=== PATIENT | male | born 2000 | race African-American/Black ===

== ENCOUNTER 2020-03-13 18:17 | Emergency (ER) | payer OTHER, SELFPAY ==
--- NOTE | 2020-03-13 18:23 | ED.GENADULT ---
HPI - General Adult General Chief complaint: Abdominal Pain Stated complaint: Side Pain Time Seen by Provider: 03/13/20 18:23 Source: patient Mode of arrival: ambulatory Limitations: no limitations History of Present Illness HPI narrative: 19-year-old male patient presents to the [facility] with complaints of left abdominal pain for the past week and a half. Patient states that he has also had associated watery diarrhea with this pain that is lasted also for about a week and states he does about 2 or 3 times a day and is very foul-smelling. Patient denies any fevers, body aches or chills. Denies any nausea or vomiting. Patient states that the abdominal pain is starting to get worse and is starting to radiate to the back and rates his pain at this time 6 out of 10. Denies taking anything for the symptoms. Patient denies any pain with urination, urgency or frequency. Denies any penile discharge. Related Data Allergies Allergy/AdvReac Type Severity Reaction Status Date / Time Bumble Bee Allergy Mild Uncoded 10/12/18 23:08 Review of Systems Review of Systems: Narrative: CONSTITUTIONAL: Denies fever, chills, or sweats. EYES: Denies visual changes, redness, or discharge. ENT: Denies rhinorrhea, congestion, sore throat, or otalgia. CARDIOVASCULAR: Denies chest pain, palpitations, or edema. RESPIRATORY: Denies cough or dyspnea. GASTROINTESTINAL: Positive left-sided abdominal pain x1.5 weeks, denies nausea, vomiting, positive diarrhea x1 week. GENITOURINARY: Denies dysuria or hematuria. SKIN: Denies rash or itching. MUSCULOSKELETAL: Denies back pain, joint pain, or myalgia. NEUROLOGIC: Denies headache, numbness, or weakness. PSYCHIATRIC: Denies anxiety or depression. [facility] Past Medical History Medical History (Updated 03/13/20 @ 18:53 by JAGJIT Pedersen) Musculoskeletal disorder Tendon surgery bilateral feet as an Social History Social History (Updated 03/13/20 @ 18:24 by JAGJIT Pedersen) Smoking status: Current every day smoker Tobacco type: e-cigarettes/vaping Alcohol intake: never Comments At the time of my signature I agree with nursing past medical history, surgical, social, and family history. There is no relevant family history pertinent to the presenting complaint. Exam Narrative: Exam Narrative: GENERAL: Well-appearing, well-nourished, and in no acute distress. HEAD: Normocephalic, atraumatic. EYES: PERRLA and EOMI. ENT: Nares clear, no rhinorrhea or epistaxis. Mucous membranes moist. NECK: Supple. No lymphadenopathy CHEST: Clear to auscultation. No respiratory distress. HEART: Regular rate and rhythm. No murmur heard. Normal peripheral pulses. ABDOMEN: Soft, flat, nondistended. No guarding, rebound tenderness, or rigid. No pulsatilla masses. Hyperactive bowel sounds present in right upper and left upper quadrants. Patient does have tenderness noted to the left upper quadrant on palpation. No organomegaly. Negative Chase?s sign. No periumbicial tenderness. No Supra public tenderness or distension. Good femoral pulses bilaterally. No hernia noted. No scars or surface trauma. EXTREMITIES: Normal range of motion. No edema. SKIN: Warm, dry, no rash. NEURO: No focal deficits. Alert and oriented x3. Course Vital Signs Vital signs: Vital Signs Temperature 36.8 C 03/13/20 18:29 Pulse Rate 67 03/13/20 18:29 Respiratory Rate 16 03/13/20 18:29 Blood Pressure 148/72 H 03/13/20 18:29 Pulse Oximetry 98 03/13/20 18:29 Temperature 36.8 C 03/13/20 18:29 Pulse Rate 67 03/13/20 18:29 Respiratory Rate 16 03/13/20 18:29 Blood Pressure 148/72 H 03/13/20 18:29 Pulse Oximetry 98 03/13/20 18:29 Vital signs reviewed The patient has been informed that they may have pre-hypertension or Hypertension based on a BP reading in the department. I recommend that the patient call the primary care provider listed on their discharge instructions or a physician of their choice this
[2020-03-13 18:29] VITALS: BP 148/72; PULSE 67; RESP 16; TEMP 36.8; O2SAT 98
--- NOTE | 2020-03-13 19:05 | PC.NURSE ---
at 1854 report was given to susy ma rn.
== END 2020-03-13 18:52 | disposition short-term general hospital (02) ==
PROVIDERS: Emergency Provider Nurse Practitioner Family
DX: R10.12 Left upper quadrant pain (principal); F17.200 Nicotine dependence, unspecified, uncomplicated
CPT/HCPCS: 81003; 99212; G0463

== ENCOUNTER 2020-03-13 19:18 | Emergency (ER) | payer OTHER, SELFPAY ==
[2020-03-13 19:42] VITALS: BP 133/70; PULSE 77; RESP 20; TEMP 36.9; O2SAT 97
[2020-03-13 20:17] LABS: Basophils Percent Auto 0.4 % (0.2-1.2); Eosinophils Absolute Auto 0.1 K/mm3 (0-0.3); Hematocrit 42.2 % (42.0-52.0); Hemoglobin 14.1 g/dL (14.0-18.0); Immature Granulocyte Absolute 0.02 K/mm3 (0.00-0.031); Immature Granulocyte Percent A 0.2 % (0-0.5); Lymphocytes Absolute Auto 1.96 K/mm3 (0.9-3.2); Lymphocytes Percent Auto 21.3 % (18.3-44.2); Mean Corpuscular HGB Conc 33.4 g/dl (32-36); Mean Corpuscular Hemoglobin 30.2 pg (26-34); Mean Corpuscular Volume 90.4 fl (80-100); Monocytes Absolute Auto 0.6 K/mm3 (0.1-0.6); Monocytes Percent Auto 6.1 % (2.6-8.5); Neutrophils Absolute Auto 6.5 K/mm3 (1.3-6.7); Platelet Count Result 177 k/mm3 (150-375); Red Blood Count 4.67 M/mm3 (4.6-6.20); Red Cell Distribution Width 11.9 % (11.5-14.5); White Blood Count 9.2 K/mm3 (4.5-10.0)
--- NOTE | 2020-03-13 20:29 | PC.NURSE ---
AT 2019 THIS RN INFORMED PT OF NEED FOR STOOL AND URINE SAMPLE. PT STATES HE CANNOT GO AT THIS TIME BECAUSE HE HAS NOT EATEN ANYTHING TODAY. PT GIVEN A HAT FOR THE TOILET AND A URINAL. PT AWARE OF NEED FOR SPECIMENS.
[2020-03-13 20:34] LABS: Alanine Aminotransferase 17 U/L (4-50); Albumin Level 4.7 g/dL (3.5-5.1); Alkaline Phosphatase 61 U/L (38-126); Anion Gap 12 mmol/L (8-16); Aspartate Amino Transferase 26 U/L (17-59); Bilirubin,Total 0.5 mg/dL (0.2-1.3); Blood Urea Nitrogen 15 mg/dL (9-20); Calcium 9.6 mg/dL (8.4-10.2); Carbon Dioxide 27 mmol/L (22-30); Chloride 102 mmol/L (98-107); Estimated CRCL calculation 117 ml/min; Estimated Glomerular Filt Rate > 60; Glucose 97 mg/dL (75-110); Lipase 21 U/L (23-300); Potassium 3.7 mmol/L (3.4-5.0); Sodium 141 mmol/L (137-145)
[2020-03-13 21:00] VITALS: BP 136/65; PULSE 81; RESP 24; O2SAT 99
--- NOTE | 2020-03-13 21:13 | ED.ABDPAIN ---
HPI - Abdominal Pain General Chief Complaint: Abdominal Pain Stated Complaint: abd pain, diarrhea Time Seen by Provider: 03/13/20 20:52 History of Present Illness HPI narrative: LUQ pain and diarrhea for the past week. The pain is intermittent. Some relief following bowel movements. Stool is watery. He has not tried anyhting for his symptoms. No fever, chills, nausea, vomiting, dysuria. Related Data Allergies Allergy/AdvReac Type Severity Reaction Status Date / Time Bumble Bee Allergy Mild Uncoded 10/12/18 23:08 Review of Systems Review of Systems: All systems reviewed & are unremarkable except as noted in HPI and below Constitutional: Constitutional: Denies fever(s) Cardiovascular: Cardiovascular: Denies chest pain Respiratory: Respiratory: Denies dyspnea Gastrointestinal: Gastrointestinal: Reports abdominal pain, Reports diarrhea, Denies nausea and Denies vomiting Genitourinary: Genitourinary: Denies dysuria Musculoskeletal: Musculoskeletal: Denies back pain Neurologic: Denies numbness and Denies weakness [facility] Past Medical History Medical History Musculoskeletal disorder Tendon surgery bilateral feet as an Social History Social History Smoking status: Current every day smoker Tobacco type: e-cigarettes/vaping Alcohol intake: never Exam Const: General: healthy appearing, no acute distress and alert Orientation/consciousness: patient oriented x3 HENMT: Head: normal to inspection Neck: Neck: normal visual inspection and no lymphadenopathy Chest: Chest palpation & inspection: no tenderness Resp: Effort & Inspection: normal respiratory effort Auscultation: clear to auscultation bilaterally, no rales, no rhonchi and no wheezes Cardio: Jugular venous distension: no JVD Rate: regular rate Rhythm: regular rhythm Heart sounds: no murmurs GI: Inspection: non-distended GI Palp: Yes Soft to palpation, Yes Tenderness to palpation present (GI) (left side of abdomen), No Guarding due to palpation present (GI) and No Rebound tenderness present Skin: General skin exam: normal color Neuro: General: patient oriented x3 and moves all extremities Speech: normal speech Extrem: General: no edema Psych: Appearance: well kempt Affect: normal affect Course Vital Signs Vital signs: Vital Signs Temperature 36.9 C 03/13/20 19:42 Pulse Rate 77 03/13/20 19:42 Respiratory Rate 20 03/13/20 19:42 Blood Pressure 133/70 03/13/20 19:42 Pulse Oximetry 97 03/13/20 19:42 Temperature 36.9 C 03/13/20 19:42 Pulse Rate 82 03/13/20 22:00 Respiratory Rate 19 03/13/20 22:00 Blood Pressure 113/52 L 03/13/20 22:00 Pulse Oximetry 98 03/13/20 22:00 MDM - Abdominal Pain MDM Narrative Medical decision making narrative: Labs and exam benign. Refused bentyl and asked to be discharged. Medical Records Attestation: I reviewed the patient's medical records. Lab Data Attestation: I reviewed the patient's lab results. Result diagrams: 03/13/20 20:09 03/13/20 20:09 Labs: Lab Results 03/13/20 03/13/20 Range/Units 20:09 20:09 WBC 9.2 (4.5-10.0) K/mm3 RBC 4.67 (4.6-6.20) M/mm3 Hgb 14.1 (14.0-18.0) g/dL Hct 42.2 (42.0-52.0) % MCV 90.4 (80-100) fl MCH 30.2 (26-34) pg MCHC 33.4 (32-36) g/dl RDW 11.9 (11.5-14.5) % Plt Count 177 (150-375) k/mm3 MPV 11.0 H (7.4-10.4) fl Immature Gran % (Auto) 0.2 (0-0.5) % Neut % (Auto) 71.0 (45.5-73.1) % Lymph % (Auto) 21.3 (18.3-44.2) % [place] % (Auto) 6.1 (2.6-8.5) % Eos % (Auto) 1.0 (0-4.4) % Baso % (Auto) 0.4 (0.2-1.2) % Lymph # (Auto) 1.96 (0.9-3.2) K/mm3 [place] # (Auto) 0.6 (0.1-0.6) K/mm3 Eos # (Auto) 0.1 (0-0.3) K/mm3 Baso # (Auto) 0.0 (0.0-0.1) K/mm3 Abs Immat Gran (auto) 0.02 (0.00-0.031) K/mm3 Absolute Neuts (a
[2020-03-13 22:00] VITALS: BP 113/52; PULSE 82; RESP 19; O2SAT 98
== END 2020-03-13 22:35 | disposition home or self-care (01) ==
PROVIDERS: Physician Assistant; Emergency Provider Emergency Medicine
DX: R10.12 Left upper quadrant pain (principal); F17.290 Nicotine dependence, other tobacco product, uncomplicated
CPT/HCPCS: 36415; 80053; 81003; 83690; 85025; 99283; A9270

== ENCOUNTER 2020-09-16 11:27 | Emergency (ER) | payer OTHER, SELFPAY ==
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
[2020-09-16 11:30] VITALS: BP 126/64; PULSE 55; RESP 20; TEMP 36.5; O2SAT 100
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
[2020-09-16] MEDS: IBUPROFEN 600 MG TABLET PO (13:53)
[2020-09-16 14:45] VITALS: BP 112/64; PULSE 67; RESP 18; O2SAT 100
== END 2020-09-16 14:30 | disposition home or self-care (01) ==
PROVIDERS: Emergency Provider Emergency Medicine
DX: S16.1XXA Strain of muscle, fascia and tendon at neck level, initial encounter (principal); F17.290 Nicotine dependence, other tobacco product, uncomplicated; M47.816 Spondylosis without myelopathy or radiculopathy, lumbar region; M47.814 Spondylosis without myelopathy or radiculopathy, thoracic region; M48.061 Spinal stenosis, lumbar region without neurogenic claudication; V49.40XA Driver injured in collision with unspecified motor vehicles in traffic accident, initial encounter
CPT/HCPCS: 72125; 72128; 72131; 99284; A9270

== ENCOUNTER 2021-10-11 11:01 | Emergency (ER) | payer SELFPAY ==
--- NOTE | ~2021-10-11 | XR_ITS ---
EXAMINATION: XR elbow LT min 3V DATE: 10/11/2021 11:29 INDICATION: Left elbow pain. TECHNIQUE: 4 views of left elbow were obtained. COMPARISON: None. FINDINGS: Bone alignment is normal. No fracture. Joint spaces are well maintained. There is no elbow joint effusion. IMPRESSION: 1. Normal left elbow. Reviewed, dictated and finalized at location A. IMPRESSION: 1. Normal left elbow.
[2021-10-11 11:09] VITALS: BP 142/60; PULSE 83; RESP 16; TEMP 37.2; O2SAT 100
--- NOTE | 2021-10-11 11:16 | ED.EXTPRO ---
HPI - Extremity Problem General Chief complaint: Extremity Problem,Nontraumatic Stated complaint: left arm pain Time Seen by Provider: 10/11/21 11:17 Source: patient and RN notes reviewed Mode of arrival: ambulatory Limitations: no limitations History of Present Illness HPI Narrative: 21-year-old male presents to the [facility] with complaints of left posterior elbow pain for a couple of days, 2-3. Patient states that he was laying in bed when he noticed he had a sharp pain posterior elbow and that is fingers 345 for change in color without pain. Full range of motion. 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 Positive radial and ulnar pulse noted Onset (ago): day(s) (2-3) Related Data Allergies Allergy/AdvReac Type Severity Reaction Status Date / Time Bumble Bee Allergy Mild Uncoded 10/12/18 23:08 Review of Systems Review of Systems: All systems reviewed & are unremarkable except as noted in HPI and below Constitutional: Constitutional: Reports no additional constitutional complaints, Denies chills and Denies fever(s) Eyes: Eyes: Reports no additional eye complaints ENT: Reports system reviewed and no additional complaints, except as documented Cardiovascular: Cardiovascular: Reports no additional cardiovascular complaints Respiratory: Respiratory: Reports no additional respiratory complaints Gastrointestinal: Gastrointestinal: Reports no additional gastrointestinal complaints Musculoskeletal: Musculoskeletal: Reports as per HPI and Reports arthralgias (Left elbow) Integumentary/Breasts: Skin/Breast: Reports system reviewed and no additional complaints, except as docu Neurologic: Reports system reviewed and no additional complaints, except as documented Psychiatric: Psychiatric: Reports no additional psychiatric complaints Allergic/Immunologic: Allergic/Immunologic: Reports no additional allergic/immunologic complaints [facility] Past Medical History Medical History Musculoskeletal disorder Tendon surgery bilateral feet as an Surgical History Surgical History (Updated 10/11/21 @ 19:25 by Mady Layne APRN) No pertinent past surgical history Social History Social History Smoking status: Current every day smoker Tobacco type: e-cigarettes/vaping Alcohol intake: never Gender identity (if verbalized by the patient): Male Comments At the time of my signature, I reviewed and agree with the nursing past medical, surgical, social, and family history. There is no relevant family history pertinent to the patient complaint. Exam Const: General: healthy appearing, no acute distress and alert Nutritional Appearance: well nourished Orientation/consciousness: patient oriented x3 Limitations: no limitations HENMT: Head: normal to inspection Ears: external ears normal Eyes: General: appearance normal, both eyes and all related structures Pupils: Equal, round and reactive pupils present Neck: Neck: normal visual inspection, no lymphadenopathy and no meningeal signs Chest: Chest palpation & inspection: normal inspection of the chest Resp: Effort & Inspection: normal respiratory effort and no use of accessory muscles Auscultation: clear to auscultation bilaterally, no crackles, no rales, no rhonchi and no wheezes Cardio: Rate: regular rate Rhythm: regular rhythm GI: GI Palp: Yes Soft to palpation and No Tenderness to palpation present (GI) Back/Spine/Pelvis: Cervical Spine: normal cervical lordosis Thoracic/Lumbar Spine: thoracic and lumbar spine normal to inspection Skin: General skin exam: normal color Rashes: no rashes Wounds: no wounds Neuro: General: patient oriented x3, moves all extremities, no meningeal signs and no focal motor deficits Cranial nerves: Yes Equal, round and reactive pupils present Speech: normal speech Gait exam (Neuro): Normal gait present Extrem: General: normal to inspecti
== END 2021-10-11 11:45 | disposition home or self-care (01) ==
PROVIDERS: Emergency Provider Nurse Practitioner
DX: M25.522 Pain in left elbow (principal); F17.290 Nicotine dependence, other tobacco product, uncomplicated
CPT/HCPCS: 73080; 99213; G0463

== ENCOUNTER 2023-10-19 08:57 | Emergency (ER) | payer OTHER, SELFPAY ==
[2023-10-19 09:30] VITALS: BP 126/57; PULSE 64; RESP 16; TEMP 36.9; O2SAT 100
--- NOTE | 2023-10-19 10:23 | ED.LOWEXIN ---
HPI - Extremity Injury (Lower) General Chief Complaint: Extremity Injury, Lower Stated Complaint: Left Hip Injury Source: patient Mode of arrival: ambulatory Limitations: no limitations History of Present Illness HPI Narrative: 23 y/o male presented for c/o left groin pain worsening for 3-4 days. States he started with mild groin pain, then it worsened after he fell onto his back while running after his dog yesterday. Denies testicular pain or swelling. Endorses the pain radiates towards the hip and down the leg causing numbness at times. Pain is worse when walking and trying to get in/out of a vehicle. Denies abdominal pain, back pain, weakness of the lower extremities, or change in gait, saddle paresthesia or loss of bowel or bladder. Took ibuprofen last night. Related Data Home Medications Medication Instructions Recorded Confirmed No Home Medications 10/19/23 10/19/23 Allergies Allergy/AdvReac Type Severity Reaction Status Date / Time Bumble Bee Allergy Mild Other Uncoded 10/19/23 08:59 Review of Systems Review of Systems: CONSTITUTIONAL: Denies body aches, fever, chills CARDIOVASCULAR: Denies chest pain, palpitations, or edema. RESPIRATORY: Denies cough or dyspnea. GASTROINTESTINAL: Denies abdominal pain, nausea, vomiting, or diarrhea. SKIN: Denies rash, itching, or wounds. MUSCULOSKELETAL: Denies back pain, reports left groin/hip pain NEUROLOGIC: Denies headache, numbness, tingling, or weakness. All systems reviewed & are unremarkable except as noted in HPI and below PMFSH Past Medical History Medical History Musculoskeletal disorder Tendon surgery bilateral feet as an Surgical History Surgical History No pertinent past surgical history Social History Social History Smoking status: Current every day smoker Tobacco type: e-cigarettes/vaping Alcohol intake: never Gender identity (if verbalized by the patient): Male Comments At time of signature, I have reviewed and agree with nursing past medical, surgical, social and family history unless otherwise noted. Please see nursing chart for further information. There is no relevant family history pertinent to the presenting complaint Exam Narrative: GENERAL: Well-appearing CHEST: Speaks in full sentences. No respiratory distress. HEART: Regular rate and rhythm. Normal and equal peripheral pulses. EXTREMITIES: Left inguinal tenderness with palpation. No apparent swelling. Left leg has normal strength and sensation, slightly decreased range of motion at left hip endorses pain with abduction. No ecchymosis, No open wounds, or obvious deformity; alignment normal, pulse palpable and equal bilaterally, skin warm, dry, pink. Capillary refill less than 3 seconds. Guarding with walking. SKIN: Warm, dry, no rash. NEURO: Alert and oriented x3. PSYCH: Normal mood and affect Course Course Emergency Course: Patient is aware of diagnosis, understands and agrees to treatment plan. Anticipatory guidance given. Patient agrees to follow-up as directed and is aware of reasons to seek care at the emergency department. Portions of this record may have been created with voice recognition software Level of Care: Express Care Visit Vital Signs Vital signs: Vital Signs Temperature 98.4 F 10/19/23 09:30 Pulse Rate 64 10/19/23 09:30 Respiratory Rate 16 10/19/23 09:30 Blood Pressure 126/57 L 10/19/23 09:30 Pulse Oximetry 100 10/19/23 09:30 Oxygen Delivery Room Air 10/19/23 09:30 Temperature 98.4 F 10/19/23 09:30 Pulse Rate 64 10/19/23 09:30 Respiratory Rate 16 10/19/23 09:30 Blood Pressure 126/57 L 10/19/23 09:30 Pulse Oximetry 100 10/19/23 09:30 Oxygen Delivery Room Air 10/19/23 09:30 Reviewed MDM - Extremity Injury (Lower)
== END 2023-10-19 10:25 | disposition short-term general hospital (02) ==
PROVIDERS: Emergency Provider Nurse Practitioner Family
DX: R10.32 Left lower quadrant pain (principal); F17.290 Nicotine dependence, other tobacco product, uncomplicated
CPT/HCPCS: 99212; G0463

== ENCOUNTER 2023-10-19 11:01 | Emergency (ER) | payer SELFPAY ==
--- NOTE | ~2023-10-19 | XR_ITS ---
EXAMINATION: XR hip LT min 3V w AP pelvis DATE: 10/19/2023 13:24 INDICATION: Left hip pain. Fall. TECHNIQUE: An anteroposterior view of the pelvis and 3 views of left hip were obtained. COMPARISON: None. FINDINGS: Bone alignment is normal. No fracture. Joint spaces are normal. IMPRESSION: 1. Normal pelvis and left hip. Reviewed, dictated and finalized at location A.
[2023-10-19 11:17] VITALS: BP 118/74; PULSE 67; RESP 17; TEMP 36.7; O2SAT 100
--- NOTE | 2023-10-19 12:38 | ED.FALL ---
HPI - Fall General Chief Complaint: Fall Stated Complaint: left groin pain Time Seen by Provider: 10/19/23 12:08 Source: patient History of Present Illness HPI Narrative: 23 years old white male was a cheese in his log yesterday, fell on the left side of his hip. Complaining of left groin pain. He denies any other injuries Related Data Home Medications Medication Instructions Recorded Confirmed No Home Medications 10/19/23 10/19/23 Allergies Allergy/AdvReac Type Severity Reaction Status Date / Time Bumble Bee Allergy Mild Other Uncoded 10/19/23 08:59 Review of Systems Review of Systems: All systems reviewed & are unremarkable except as noted in HPI and below PMFSH Past Medical History Medical History Musculoskeletal disorder Tendon surgery bilateral feet as an infant Surgical History Surgical History No pertinent past surgical history Social History Social History Smoking status: Current every day smoker Tobacco type: e-cigarettes/vaping Alcohol intake: never Gender identity (if verbalized by the patient): Male Exam Narrative: General appearance: Well-developed, well-nourished Skin: Normal color Head: Normocephalic, nontraumatic Eyes: Clear conjunctiva ENT: Oropharynx normal, ears normal, nose normal Neck: Supple, nontender Chest and respiratory: Airway patent, no respiratory distress, no accessory muscle use Heart: Regular rate/rhythm Abdomen: Soft, nontender, no organomegaly, quiet bowel sounds Vascular: Normal peripheral pulses, normal capillary refill. Musculoskeletal: Diffuse tenderness left groin area and left hip laterally, no bruises or swelling or deformity slight limited range of motion Neurologic: Alert and oriented ?3, [employer] is normal as tested, no gross motor deficit Course Vital Signs Vital signs: Vital Signs Temperature 36.7 C 10/19/23 11:17 Pulse Rate 67 10/19/23 11:17 Respiratory Rate 17 10/19/23 11:17 Blood Pressure 118/74 10/19/23 11:17 Pulse Oximetry 100 10/19/23 11:17 Oxygen Delivery Room Air 10/19/23 11:17 Temperature 36.7 C 07/01/24 11:17 Pulse Rate 67 10/19/23 11:17 Respiratory Rate 17 10/19/23 11:17 Blood Pressure 118/74 10/19/23 11:17 Pulse Oximetry 100 10/19/23 11:17 Oxygen Delivery Room Air 10/19/23 11:17 MDM - Fall MDM Narrative Medical decision making narrative: Left hip pain after a fall, My differential diagnosis strain, sprain or less likely fracture X-ray left hip and pelvis ordered. Differential Diagnosis Differential diagnosis: Likely other (Fracture, strain/sprain) Imaging Data Radiologist's impression: Impressions Hip/Pelvis X-Ray 10/19/23 13:24 IMPRESSION: 1. Normal pelvis and left hip. Critical Care Time Critical Care Time Critical Care Time: No Discharge Plan Discharge Clinical Impression: Contusion of hip, left Patient Disposition: Home, Self-Care Condition: Stable Instructions: Hip Pain (ED) Additional Instructions: Return if symptoms are worsening , call your family physician for appointment, take Tylenol as as needed for aches and pain, continue home medications. Take Tylenol, ibuprofen as needed, avoid bearing weight on the left lower extremity, crutches as needed Prescriptions: No Action No Home Medications Follow-up/Referrals: Bienvenido Estrada MD [Physician] - 10/22/23 UNKNOWN,DOCTOR [Primary Care Provider] - Stand Alone Forms: Work/School Release IP
[2023-10-19] MEDS: IBUPROFEN 600 MG TABLET PO (12:45)
[2023-10-19] MEDS: ACETAMINOPHEN 325 MG TABLET 650 MG PO (12:45)
== END 2023-10-19 14:25 | disposition home or self-care (01) ==
PROVIDERS: Emergency Provider Emergency Medicine
DX: S70.02XA Contusion of left hip, initial encounter (principal); F17.290 Nicotine dependence, other tobacco product, uncomplicated; W19.XXXA Unspecified fall, initial encounter
CPT/HCPCS: 73502; 99283; A9270

== ENCOUNTER 2023-12-08 00:24 | Emergency (ER) | payer SELFPAY ==
[2023-12-08 00:27] VITALS: BP 131/74; PULSE 73; RESP 18; TEMP 36.3; O2SAT 99
== END 2023-12-08 00:30 | disposition left against medical advice (07) ==
DX: R52 Pain, unspecified (principal)
CPT/HCPCS: 99199